=== PATIENT | female | born 1980 | race Caucasian/White ===

== ENCOUNTER 2017-09-15 10:59 | Emergency (ER) | payer BC, SELFPAY ==
[2017-09-15] MEDS ORDERED: Adacel (T-DAP) 0.5 ML VIAL ONE (11:21)
== END 2017-09-15 11:30 | disposition home or self-care (01) ==
LOC: MADERS 10:59
DX: S61.210A Laceration without foreign body of right index finger without damage to nail, initial encounter (principal); Z23 Encounter for immunization; W27.8XXA Contact with other nonpowered hand tool, initial encounter; Y99.0 Civilian activity done for income or pay
CPT/HCPCS: 90471; 90715